=== PATIENT | male | born 1965 | race American Indian/Alaskan Native ===

== ENCOUNTER 2019-10-31 18:43 | Emergency (ER) | payer SELFPAY ==
[2019-10-31 18:53] VITALS: BP 129/85
--- NOTE | 2019-10-31 19:20 | Emergency Department Report ---
Blank Doc - Documentation Documentation: 54-year-old male that presents with dizziness. This initial assessment/diagnostic orders/clinical plan/treatment(s) is/are subject to change based on patient's health status, clinical progression and re- assessment by fellow clinical providers in the ED. Further treatment and workup at subsequent clinical providers discretion. Patient/guardians urged not to elope from the ED as their condition may be serious if not clinically assessed and managed. Initial orders include: 1- Patient sent to [facility] for further evaluation and treatment 2- labs 3- UA
[2019-10-31 20:30] LABS: Basophils % (Auto) 0.4 % (0.0-1.8); Eosinophils # (Auto) 0.3 K/mm3 (0.0-0.4); Eosinophils % (Auto) 2.9 % (0.0-4.3); Hematocrit 42.4 % (35.5-45.6); Hemoglobin 14.7 gm/dl (11.8-15.2); Lymphocytes % (Auto) 26.1 % (13.4-35.0); Mean Corpuscular HGB Conc 35 % (32-34); Mean Corpuscular Volume 92 fl (84-94); Monocytes # (Auto) 1.1 K/mm3 (0.0-0.8); Platelet Count 237 K/mm3 (140-440); Red Blood Count 4.61 M/mm3 (3.65-5.03); Red Cell Distribution Width 13.9 % (13.2-15.2)
[2019-10-31 20:53] LABS: Alanine Aminotransferase 22 units/L (7-56); Albumin 4.4 g/dL (3.9-5); BUN/Creatinine Ratio 15; Blood Urea Nitrogen 17 mg/dL (9-20); Calcium 9.6 mg/dL (8.4-10.2); Hemolysis Index 40
--- NOTE | 2019-10-31 22:55 | XRay Report ---
CHEST 2 VIEWS INDICATION / CLINICAL INFORMATION: Dizziness. COMPARISON: None available. FINDINGS: SUPPORT DEVICES: None. HEART / MEDIASTINUM: The heart size and pulmonary vasculature are normal. The aorta is normal in jamshid essie. LUNGS / PLEURA: No significant pulmonary or pleural abnormality. No pneumothorax. ADDITIONAL FINDINGS: No significant additional findings. IMPRESSION: No acute findings. Signer Name: Raz Frankel MD Signed: 10/31/2019 10:51 PM Workstation Name: [id number]
--- NOTE | 2019-10-31 23:47 | Cat Scan Report ---
Examination: CT of the head without contrast Clinical information: Dizziness. Altered mental status. Comparison: None Technical: Multiple axial CT images of the head were obtained without intravenous contrast. Sagittal and coronal reformats were obtained. All CTs at this facility utilize dose reduction techniques inc luding automated exposure control, iterative reconstruction and weight based dosing when appropriate to reduce patient radiation dose to as low as reasonable achievable. Findings: There is no CT evidence of acute intracranial hemorrhage or large territorial infarct. The ventricular system appears normal in size. No extra-axial fluid collection is identified. Evaluation of the calvarium demonstrates no evidence of acute bony abnormality. The visualized parana roselia sinuses and mastoid air cells Impression: 1. No CT evidence of acute intracranial process. Signer Name: Mary Mueller MD Signed: 10/31/2019 11:42 PM Workstation Name: [id number]
[2019-11-01 00:02] LABS: Bilirubin,Urine NEG (Negative); Blood,Urine NEG (Negative); Color,Urine Yellow (Yellow); Protein,Urine <15 mg/dL mg/dL (Negative); Urobilinogen,Urine < 2.0 mg/dL (<2.0)
--- NOTE | 2019-11-01 02:47 | Emergency Department Report ---
ED General Adult HPI - General Chief complaint: Dizziness Stated complaint: GENERAL WEAKNESS Time Seen by Provider: 10/31/19 19:19 Source: patient Mode of arrival: Ambulatory Limitations: No Limitations - History of Present Illness Initial comments: Patient is a 54-year-old -Citizen Of [place] male with no past medical history and was currently on no medications presents to the ED with complaint of acute onset persistent intermittent generalized weakness, lightheadedness and subjective dizziness for the last 1 week, worse in the last 12 hours. Patient states that the dizziness and lightheadedness usually occur whenever he gets up from a seated position or lying position. Patient states that sometimes the symptoms occur when he is driving and that the symptoms have intermittent in occurrence with no pattern. Patient denies headache, chest pain, shortness of breath, syncope, change in vision, back pain, nausea and vomiting or diarrhea, abdominal pain, fever, chills, cough or fall. MD Complaint: lightheadedness, generalized weakness, dizziness -: Sudden, week(s) (1) Location: head Radiation: non-radiation Severity scale (0 -10): 2 Quality: dull Consistency: intermittent Improves with: none Worsens with: movement Associated Symptoms: denies other symptoms, malaise, weakness. denies: conf usion, chest pain, cough, diaphoresis, fever/chills, headaches, loss of appetite, nausea/vomiting, rash, seizure, shortness of breath, syncope, other Treatments Prior to Arrival: none - Related Data Previous Rx's Medication Instructions Recorded Last Taken Type Meclizine [Antivert] 25 mg PO Q8H PRN #30 tablet 11/01/19 Unknown Rx Allergies Allergy/AdvReac Type Severity Reaction Status Date / Time No Known Allergies Allergy Verified 10/31/19 18:46 ED Review of Systems ROS: Stated complaint: GENERAL WEAKNESS Other details as noted in HPI Constitutional: malaise, weakness. denies: chills, fever Eyes: denies: eye pain, eye discharge, vision change ENT: denies: ear pain, throat pain, congestion Respiratory: denies: cough, shortness of breath, SOB with exertion, wheezing Cardiovascular: denies: chest pain, palpitations Endocrine: no symptoms reported Gastrointestinal: denies: abdominal pain, nausea, vomiting, diarrhea, hematemesis, hematochezia Genitourinary: denies: urgency, dysuria Musculoskeletal: denies: back pain, joint swelling, arthralgia Skin: denies: rash, lesions Neurological: vertigo, other (generalized weakness). denies: headache, weakness, paresthesias Psychiatric: denies: anxiety, depression Hematological/Lymphatic: denies: easy bleeding, easy bruising ED Past Medical Hx - Past Medical History Previous Medical History?: No - Surgical History Past Surgical History?: No - Social History Smoking Status: Never Smoker - Medications Home Medications: Home Medications Medication Instructions Recorded Confirmed Last Taken Type Meclizine [Antivert] 25 mg PO Q8H PRN #30 tablet 11/01/19 Unknown Rx ED Physical Exam - General Limitations: No Limitations General appearance: alert, in no apparent distress - Head Head exam: Present: atraumatic, normocephalic, normal inspection - Eye Eye exam: Present: normal appearance, PERRL, EOMI - ENT ENT exam: Present: normal exam, normal orophraynx, mucous membranes moist, TM's normal bilaterally, normal external ear exam - Neck Neck exam: Present: normal inspection, full ROM - Respiratory Respiratory exam: Present: normal lung sounds bilaterally. Absent: respiratory distress, wheezes, stridor, chest wall tenderness, accessory muscle use, decreased breath sounds, prolonged expiratory - Cardiovascular Cardiovascular Exam: Present: regular rate, normal rhythm, normal heart sounds. Absent: systolic murmur, diastolic murmur, rubs, gallop - GI/Abdominal GI/Abdominal exam: Present: soft, normal bowel sounds. Absent: tenderness, guarding, hyperactive bowel sounds, hypoactive bowel sounds - Extremities Exam Extremities exam: Present: normal inspection, normal capillary refill - Back Exam Back exam: Present: normal inspection, full ROM. Absent: muscle spasm, paraspinal tenderness, vertebral tenderness - Neurological Exam Neurological exam: Present: alert, oriented X3, CN II-XII intact, normal gait, reflexes normal - Psychiatric Psychiatric exam: Present: normal affect, normal mood - Skin Skin exam: Present: warm, dry, intact, normal color. Absent: rash ED Course Vital Signs 10/31/19 18:47 Temperature 98.3 F Pulse Rate 64 Respiratory 16 Rate Blood Pressure 129/85 O2 Sat by Pulse 97 Oximetry ED Medical Decision Making - Lab Data Result diagrams: 10/31/19 19:35 10/31/19 19:35 - EKG Data EKG shows normal: sinus rhythm Rate: normal - EKG Data Interpretation: normal EKG 11/01/19 03:18 The EKG shows normal sinus rhythm with ventricular rate of 67 beats per minute and no ST or T-wave abnormalities. - Radiology Data Radiology results: report reviewed, image reviewed Head CT scan without contrast shows no acute intracranial abnormalities or hemorrhage. Chest x-ray shows no acute cardiopulmonary abnormalities or pneumonitis. - Medical Decision Making This is a 54-year-old -Citizen Of [place] male with no past medical history who presented to the ED with persistent intermittent generalized weakness, lightheadedness with some dizzy spells for 1 week. In the ED, patient is alert and oriented 3 and is not in distress with normal vital signs. Lab test results were reviewed and are all nonactionable including urinalysis as well as initial and repeat troponin levels. Chest x-ray shows no acute cardiopulmonary abnormalities on pneumonitis. Head CT scan without contrast shows no acute intracranial abnormalities or hemorrhage. EKG shows normal sinus rhythm with v entricle rate of 67 beats per minute and no ST or T-wave abnormalities. Orthostatic blood pressure was normal. Patient was discharged home on medications for vertigo as his history suggests a likelihood of intermittent vertigo. Patient was referred to the primary care physician for further evalua tion and was advised return to the ED immediately if symptoms get worse. - Differential Diagnosis dizziness; lightheadedness; Flu like; ACS; Vertigo Critical care attestation.: If time is entered above; I have spent that time in minutes in the direct care of this critically ill patient, excluding procedure time. ED Disposition Clinical Impression: Flu-like symptoms, Generalized weakness Vertigo, benign positional Qualifiers: Laterality: unspecified laterality Qualified Code(s): H81.10 - Benign paroxysmal vertigo, unspecified ear Disposition: DC-01 TO HOME OR SELFCARE Is pt being admited?: No Does the pt Need Aspirin: No Condition: Stable Instructions: Vertigo (ED), Weakness (ED), Dizziness (ED) Additional Instructions: All the other lab test results are unremarkably normal. All the imaging tests performed were also within normal limits. Therefore take medications with food, drink plenty of fluids and follow-up with your primary care physician in 7-10 days for reevaluation. Return to the ED immediately if symptoms get worse. Prescriptions: Meclizine [Antivert] 25 mg PO Q8H PRN #30 tablet PRN Reason: Vertigo Referrals: NEPTALI RENE MD [Staff Physician] - 3-5 Days Time of Disposition: 02:52 Print Language: BENGALI
== END 2019-11-01 03:25 | disposition home or self-care (01) ==
LOC: ED 18:43
DX: H81.10 Benign paroxysmal vertigo, unspecified ear (principal); R53.1 Weakness
CPT/HCPCS: 36415; 70450; 71046; 80053; 81001; 84484; 85025; 93005; 93010